=== PATIENT | male | born 1950 | race Caucasian/White ===

== ENCOUNTER 2018-01-11 13:57 | Emergency (ER) | payer MEDICAID, MEDICARE ==
--- NOTE | 2018-01-11 14:26 | EDM.PDOC ---
ED HPI GENERAL MEDICAL PROBLEM - General Chief Complaint: Laceration Stated Complaint: LACERATION ON HAND Time Seen by Provider: 01/11/18 13:59 Source of Information: Reports: Patient History Limitations: Reports: No Limitations - History of Present Illness INITIAL COMMENTS - FREE TEXT/NARRATIVE: HISTORY AND PHYSICAL: History of present illness: Patient is a 67-year-old male who presents to the emergency room with complaints of a laceration due to a dog bite. He states that he was playing with the dog when it bit his right hand. He does have a history of paresthesia to that right arm due to a previous stroke. She believes that his dog did have one set of immunizations but is unsure of which. He is unsure of his last tetanus shot. Review of systems: As per history of present illness and below otherwise all systems reviewed and negative. Past medical history: As per history of present illness and as reviewed below otherwise noncontributory. Surgical history: As per history of present illness and as reviewed below otherwise noncontributory. Social history: No reported history of drug or alcohol abuse. Family history: As per history of present illness and as reviewed below otherwise noncontributory. Physical exam: General: Well developed and well-nourished 67-year-old male. Alert and oriented. Nontoxic appearing and in no acute distress. HEENT: Atraumatic, normocephalic, pupils equal and reactive bilaterally, negative for conjunctival pallor or scleral icterus, mucous membranes moist, throat clear, neck supple, nontender, trachea midline. No drooling or trismus noted. No meningeal signs Lungs: Clear to auscultation, breath sounds equal bilaterally, chest nontender. Heart: S1S2, regular rate and rhythm without overt murmur Abdomen: Soft, nondistended, nontender. Negative for masses or hepatosplenomegaly. Negative for costovertebral tenderness. Pelvis: Stable nontender. Genitourinary: Deferred. Rectal: Deferred. Skin: Puncture sites 4 to right lateral hand. 5 cm laceration to the top of his right hand - gaping with some adipose tissue visible. Does not appear to have any tendon involvement. Otherwise skin is intact, warm, and dry. No lesions or rashes noted. Extremities: He has good flexion and extension of the wrist and fingers on the right hand. He reports that he is normally weak due to a stroke which has caused him to be unable to make a tight fist. Strong radial pulse and capillary refill less than 3 seconds to right upper extremity. Does not appear to have any tendon involvement. Neurovascular unremarkable. Neuro: Awake, alert, oriented. Cranial nerves II through XII unremarkable. Cerebellum unremarkable. Motor and sensory unremarkable throughout. Exam nonfocal. Notes: I strongly encouraged the patient that we do the rabies vaccinations as he does not recall the dogs last shots. Was thoroughly explained and educated to the patient, he declines. Received a tetanus shot today. Due to the gaping nature of the laceration I did consult Dr. Shey Couch, the hand surgeon, for her expertise. Area was cleansed with wound wash and irrigated. Lidocaine was used to anesthetize the area. #2 interpreted sutures were placed to tack the laceration closed. Bacitracin was placed on the puncture sites. Nonstick pressure dressing was applied. Education was done with the patient on not receiving the rabies vaccinations today. We discussed the importance of medication compliance for his antibiotics. He voices understanding and is agreeable to plan of care. We'll place the patient on Augmentin twice a day 10 days. Encouraged him to follow up with Dr. Shey Couch. Diagnostics: [] Therapeutics: TdaP, lidocaine, bacitracin dressing Impression: Dog bite of right hand Laceration Plan: 1. These take the antibiotic as directed. Augmentin 1 tab twice daily 10 days. Please keep the area clean and dry. Cover the lacerated area with clean dressing daily, when out performing your normal routine. Continue to monitor for signs of infection such as fever, drainage, redness to the dog bite site. You do notice signs of infection please return to the emergency room. 2. Two stitches were placed to tack the laceration closed. Sutures should be removed in 10-14 days. 3. Follow-up with your primary caregiver in the next couple days. Return to the ED as needed and as discussed. Definitive disposition and diagnosis as appropriate pending reevaluation and review of above. Onset: Today Duration: Hour(s): Right Hand Pain Score (Numeric/FACES): 5 - Related Data Allergies Allergy/AdvReac Type Severity Reaction Status Date / Time No Known Allergies Allergy Verified 01/11/18 14:29 ED ROS GENERAL - Review of Systems Review Of Systems: ROS reveals no pertinent complaints other than HPI. ED EXAM, SKIN/RASH Exam: See Below (See dictation) Course - Vital Signs Last Recorded V/S: Last Vital Signs Temp 99.3 F 01/11/18 14:24 Pulse 104 H 01/11/18 14:24 Resp 18 01/11/18 14:24 BP 144/96 H 01/11/18 14:24 Pulse Ox 96 01/11/18 14:24 - Orders/Labs/Meds Orders: Active Orders 24 hr Category Date Time Status Communication Order [RC] STAT Care 01/11/18 14:37 Ordered Vaccines to be Administered [RC] PER UNIT ROUTINE Care 01/11/18 14:33 Ordered Meds: Medications Discontinued Medications Generic Name Dose Route Start Last Admin Trade Name Rivera PRN Reason Stop Dose Admin Bacitracin 1 dose 01/11/18 14:37 01/11/18 14:45 Bacitracin Oint 1 Gm TOP 01/11/18 14:38 1 dose ONETIME ONE Administration Diphtheria/Tetanus/Acell Pertussis 0.5 ml 01/11/18 14:29 01/11/18 14:45 Adacel IM 01/11/18 14:30 0.5 ml .ONCE ONE Administration Lidocaine HCl 20 ml 01/11/18 14:37 01/11/18 14:44 Xylocaine 1% INJECT 01/11/18 14:38 20 ml ONETIME ONE Administration Departure - Departure Time of Disposition: 15:18 Disposition: Home, Self-Care 01 Clinical Impression: Laceration Dog bite of hand Qualifiers: Encounter type: initial encounter Laterality: right Qualified Code(s): S61.451A - Open bite of right hand, initial encounter; W54.0XXA - Bitten by dog , initial encounter - Discharge Information Instructions: Animal Bite, [id number] Referrals: Jose Maria Rod MD [Primary Care Provider] - Forms: ED Department Discharge Additional Instructions: The following information is given to patients seen in the emergency department who are being discharged to home. This information is to outline your options for follow-up care. We provide all patients seen in our emergency department with a follow-up referral. The need for follow-up, as well as the timing and circumstances, are variable depending upon the specifics of your emergency department visit. If you don't have a primary care physician on staff, we will provide you with a referral. We always advise you to contact your personal physician following an emergency department visit to inform them of the circumstance of the visit and for follow-up with them and/or the need for any referrals to a consulting specialist. The emergency department will also refer you to a specialist when appropriate. This referral assures that you have the opportunity for follow-up care with a specialist. All of these measure are taken in an effort to provide you with optimal care, which includes your follow-up. Under all circumstances we always encourage you to contact your private physician who remains a resource for coordinating your care. When calling for follow-up care, please make the office aware that this follow-up is from your recent emergency room visit. If for any reason you are refused follow-up, please contact the [facility] Emergency Department at and asked to speak to the emergency department charge nurse. [facility] [address] [place] [id number] [facility] - Plastic Surgery Professional Building [address] [place] [address], [address] [place] [address] 1. These take the antibiotic as directed. Augmentin 1 tab twice daily 10 days. Please keep the area clean and dry. Cover the lacerated area with clean dressing daily, when out performing your normal routine. Continue to monitor for signs of infection such as fever, drainage, redness to the dog bite site. You do notice signs of infection please return to the emergency room. 2. Two stitches were placed to tack the laceration closed. Sutures should be removed in 10-14 days. 3. Follow-up with your primary caregiver in the next couple days. Dr. Couch is a hand surgeon; please follow up with her next week for re-evaluation. Return to the ED as needed and as discussed. - My Orders Last 24 Hours: My Active Orders 01/11/18 14:33 Vaccines to be Administered [RC] PER UNIT ROUTINE 01/11/18 14:37 Communication Order [RC] STAT - Assessment/Plan Last 24 Hours: My Active Orders 01/11/18 14:33 Vaccines to be Administered [RC] PER UNIT ROUTINE 01/11/18 14:37 Communication Order [RC] STAT
[2018-01-11] MEDS ORDERED: Diphtheria,Pertussis(Acell),Tetanus Vaccine 0.5 ML Syringe IM ONE (14:29)
[2018-01-11] MEDS ORDERED: Bacitracin Oint 1 GM U/D Packet TOP ONE (14:37)
[2018-01-11] MEDS ORDERED: Lidocaine 1% 20 ML MDV INJECT ONE (14:37)
== END 2018-01-11 15:39 | disposition home or self-care (01) ==
LOC: MW.ED 13:57
DX: S61.451A Open bite of right hand, initial encounter (principal); Z23 Encounter for immunization; W54.0XXA Bitten by dog, initial encounter
CPT/HCPCS: 90471; 90715; 99283-25

== ENCOUNTER 2019-03-06 07:07 | Day surgery (SDC) | payer MEDICAID, MEDICARE ==
[~2019-03-06 07:07] MED LIST: Lactated Ringers 1,000 ML IV SCH
[2019-03-06] MEDS ORDERED: Midazolam 1 MG/ML 2 ML SDV ONE (08:48)
[2019-03-06] MEDS ORDERED: fentaNYL 100 MCG/2 ML SDV ONE (08:49)
[2019-03-06] MEDS ORDERED: Propofol 200 MG/20 ML SDV ONE ×3 (08:49→08:51)
--- NOTE | 2019-03-06 09:01 | PCM.PREANE ---
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) Other: Reports: None - Physical Assessment NPO Status Date: 03/05/19 O2 Sat by Pulse Oximetry: 94 Respiratory Rate: 16 Vital Signs: Last Vital Signs Temp 97.2 F 03/06/19 08:40 Pulse 75 03/06/19 08:40 Resp 16 03/06/19 08:40 BP 159/81 H 03/06/19 08:40 Pulse Ox 94 L 03/06/19 08:40 Height: 5 ft 5 in Weight: 100.698 kg ASA Class: 3 Mental Status: Alert & Oriented x3 Airway Class: Mallampati = 3 (full burch) Dentition: Reports: Broken Tooth/Teeth, Missing Tooth/Teeth ROM/Head Extension: Full Lungs: Clear to Auscultation, Normal Respiratory Effort - Lab Values: Laboratory Last Values POC Glucose 108 mg/dL (60-110) 03/06/19 08:27 - Allergies Allergies/Adverse Reactions: Allergies Allergy/AdvReac Type Severity Reaction Status Date / Time No Known Allergies Allergy Verified 03/06/19 08:21 - Blood Blood Available: No - Anesthesia Plan Pre-Op Medication Ordered: None - Acknowledgements Anesthesia Type Planned: General Anesthesia Pt an Appropriate Candidate for the Planned Anesthesia: Yes Alternatives and Risks of Anesthesia Discussed w Pt/Guardian: Yes Pt/Guardian Understands and Agrees with Anesthesia Plan: Yes Additional Comments: PMH: htn, dm2, bph, hld, s/p CVA, smoker PLAN: mac/tiva PreAnesthesia Questionnaire Cardiovascular History: Reports: High Cholesterol, Hypertension Genitourinary History: Reports: BPH Musculoskeletal History: Reports: Other (See Below) Other Musculoskeletal History: right sided weakness- uses cane Neurological History: Reports: CVA Other Neuro History: CVA in 2012, has right sided weakness Endocrine/Metabolic History: Reports: Diabetes, Type II, Obesity/BMI 30+ Hematologic History: Reports: Anticoagulation Therapy Other Hematologic History: taking Plavix - Infectious Disease History Infectious Disease History: Reports: Chicken Pox, Measles, Mumps - Past Surgical History HEENT Surgical History: Reports: Tonsillectomy GI Surgical History: Reports: Colonoscopy - SUBSTANCE USE Smoking Status *Q: Never Smoker Recreational Drug Use History: Yes Recreational Drug Type: Reports: Marijuana/Hashish - HOME MEDS Home Medications: Home Meds Acetaminophen with Codeine [Tylenol with Codeine #3 Tablet] 2 tab PO BEDTIME PRN 02/22/19 [History] Clopidogrel [Plavix] 75 mg PO DAILY 02/22/19 [History] Escitalopram Oxalate 10 mg PO DAILY 02/22/19 [History] Lisinopril 30 mg PO DAILY 02/22/19 [History] Simvastatin 20 mg PO BEDTIME 02/22/19 [History] Tamsulosin [Flomax] 0.4 mg PO DAILY 02/22/19 [History] glipiZIDE [Glucotrol XL] 10 mg PO DAILY 02/22/19 [History] metFORMIN HCl [Fortamet] 1,000 mg PO QPM 02/22/19 [History] metFORMIN HCl [Fortamet] 500 mg PO QAM 02/22/19 [History] - CURRENT (IN HOUSE) MEDS Current Meds: Current Medications Lactated Ringer's (Ringers, Lactated) 1,000 mls @ 125 mls/hr IV ASDIRECTED [facility] Last Admin: 03/06/19 08:20 Dose: 125 mls/hr Discontinued Medications Fentanyl (Sublimaze) Confirm Administered Dose 100 mcg .ROUTE .STK-MED ONE Stop: 03/06/19 08:50 Lactated Ringer's (Ringers, Lactated) 1,000 mls @ 125 mls/hr IV ASDIRECTED [facility] Midazolam HCl (Versed 1 Mg/Ml) Confirm Administered Dose 2 mg .ROUTE .STK-MED ONE Stop: 03/06/19 08:49 Propofol (Diprivan 20 Ml) Confirm Administered Dose 200 mg .ROUTE .STK-MED ONE Stop: 03/06/19 08:50 Propofol (Diprivan 20 Ml) Confirm Administered Dose 200 mg .ROUTE .STK-MED ONE Stop: 03/06/19 08:51 Propofol (Diprivan 20 Ml) Confirm Administered Dose 200 mg .ROUTE .STK-MED ONE Stop: 03/06/19 08:52
--- NOTE | 2019-03-06 09:53 | PCM.OPNOTE ---
- General Post-Op/Procedure Note Date of Surgery/Procedure: 03/06/19 Operative Procedure(s): Colonoscopy Pre Op Diagnosis: Desire for colorectal cancer screening Post-Op Diagnosis: No evidence of neoplasia Anesthesia Technique: MAC Primary Surgeon: Raman Banda [employer] Insurance Claim Examiner: Chidi Saenz Jr Condition: Good Free Text/Narrative:: DICTATION 115432 CPT CODE 62398
[2019-03-06] MEDS ORDERED: Lactated Ringers 1,000 ML IV SCH (10:00)
--- NOTE | 2019-03-06 10:12 | PCM.POSTAN ---
POST ANESTHESIA ASSESSMENT - MENTAL STATUS Mental Status: Alert, Oriented - VITAL SIGNS Pulse Rate: 66 SaO2: 95 Resp Rate: 16 Blood Pressure: 110/70 - RESPIRATORY Respiratory Status: Respiratory Rate WNL, Airway Patent, O2 Saturation Stable - CARDIOVASCULAR CV Status: Pulse Rate WNL, Blood Pressure Stable - GASTROINTESTINAL GI Status: No Symptoms - POST OP HYDRATION Hydration Status: Adequate & Stable
--- NOTE | 2019-03-06 11:01 | PCM48HPAN ---
Post Anesthesia Note - EVALUATION WITHIN 48HRS OF ANESTHETIC Vital Signs in Normal Range: Yes Patient Participated in Evaluation: Yes Respiratory Function Stable: Yes Airway Patent: Yes Cardiovascular Function Stable: Yes Hydration Status Stable: Yes Pain Control Satisfactory: Yes Nausea and Vomiting Control Satisfactory: Yes Mental Status Recovered: Yes Pulse Rate: 66 Resp Rate: 16 Blood Pressure: 110/70
--- NOTE | 2019-03-06 12:20 | OR ---
SURGEON: Raman Banda M.D. DATE OF PROCEDURE: 03/06/2019 OPERATION PERFORMED: Colonoscopy. PRIMARY SURGEON: Raman Banda M.D. SAND MIXER OPERATOR: administrative sales assistant: Dr. Saenz, PGY2. ANESTHESIA: MAC. ASA CLASSIFICATION: III. PREOPERATIVE DIAGNOSIS: Desire for colorectal cancer screening. POSTOPERATIVE DIAGNOSIS: No evidence of neoplasia. DESCRIPTION OF PROCEDURE: The patient was taken to the endoscopy room and positioned on the endoscopy table in the left lateral decubitus position. Time-out was called for appropriate identification of the patient and procedure. Monitored anesthesia care was provided. The colonoscope was inserted into the rectum and advanced without difficulty to the cecum where the colonoscope was retroflexed to visualize the ascending colon from below. The colonoscope was then straightened and slowly withdrawn. The cecum was identified by internal landmarks and external pressure. The cecum, ascending colon, hepatic flexure, transverse colon, splenic flexure, descending colon, sigmoid colon, and rectum were very well visualized. No tumors, polyps, diverticula, or angiodysplastic changes were noted anywhere in the lower gastrointestinal tract. Once the colonoscope was withdrawn to the rectum, it was retroflexed to visualize the anal orifice from above. Again, no tumors or polyps were seen. There were no acute hemorrhoidal changes. The colonoscope was then straightened, the rectum aspirated, and the colonoscope removed. The patient tolerated the procedure well and was taken to recovery room in stable condition. EDILBERTO / CHELSEA /[id number]
== END 2019-03-06 11:08 | disposition home or self-care (01) ==
LOC: MW.SDS 07:07
PROVIDERS: ATTEND Surgery
DX: Z12.11 Encounter for screening for malignant neoplasm of colon (principal); E11.9 Type 2 diabetes mellitus without complications; I10 Essential (primary) hypertension; N40.0 Benign prostatic hyperplasia without lower urinary tract symptoms; E78.5 Hyperlipidemia, unspecified; F32.9 Major depressive disorder, single episode, unspecified; F17.200 Nicotine dependence, unspecified, uncomplicated; Z79.01 Long term (current) use of anticoagulants; Z86.73 Personal history of transient ischemic attack (TIA), and cerebral infarction without residual deficits; Z80.0 Family history of malignant neoplasm of digestive organs; Z79.899 Other long term (current) drug therapy
CPT/HCPCS: 82962; G0105; J2250; J2704; J3010; J7120